=== PATIENT | male | born 1995 | race Two or more races ===

== ENCOUNTER 2022-03-11 06:12 | Day surgery (SDC) | payer OTHER ==
[~2022-03-11] VITALS: Ht 167.6 cm; Wt 78.5 kg
[~2022-03-11 06:12] MED LIST: LR 1,000 ML IV SCH; ONDANSETRON 4MG 2ML VIAL IV PRN; fentaNYL 100 MCG/2 ML INJECTION IV PRN; oxyCODONE 5MG TAB PO PRN
[2022-03-11] MEDS ORDERED: ceFAZolin SOD 2 GM in IV 1 EA IV ONE (06:15)
[2022-03-11] MEDS ORDERED: BACITRACIN OINTMENT 30GM TUBE As Ordered ONE (07:11)
[2022-03-11] MEDS ORDERED: BUPIVACAINE HCL 0.25% 30ML VIAL As Ordered ONE (07:11)
[2022-03-11] MEDS ORDERED: LIDOCAINE 1% SDV 30ML VIAL As Ordered ONE (07:11)
[2022-03-11] MEDS ORDERED: ONDANSETRON 4MG 2ML VIAL IV PRN ×2 (07:45→08:55)
[2022-03-11] MEDS ORDERED: LR 1,000 ML IV SCH ×2 (07:45→08:55)
[2022-03-11] MEDS ORDERED: fentaNYL 100 MCG/2 ML INJECTION IV PRN ×2 (07:45→08:55)
[2022-03-11] MEDS ORDERED: oxyCODONE 5MG TAB PO PRN (07:45)
[2022-03-11] MEDS ORDERED: propofoL 200 MG/20 ML VIAL As Ordered ONE (08:01)
[2022-03-11] MEDS ORDERED: MIDAZOLAM INJ 2MG/2ML VIAL As Ordered ONE (08:01)
[2022-03-11] MEDS ORDERED: fentaNYL 250 MCG/5 ML INJECTION As Ordered ONE (08:01)
[2022-03-11] MEDS ORDERED: ACETAMINOPHEN 1000MG 100ML IV BAG As Ordered ONE (08:01)
[2022-03-11] MEDS ORDERED: LIDOCAINE 2% 100MG/5ML SDV (FOR ANES.) As Ordered ONE (08:01)
[2022-03-11] MEDS ORDERED: ONDANSETRON 4MG 2ML VIAL As Ordered ONE (08:01)
[2022-03-11] MEDS ORDERED: ESMOLOL INJ 100MG/10ML VIAL As Ordered ONE (08:29)
[2022-03-11] MEDS ORDERED: PERCOCET 5MG/325MG TAB PO PRN (09:25)
[2022-03-11] MEDS ORDERED: PERCOCET PO (09:27)
[2022-03-11] MEDS: oxyCODONE 5MG TAB PO PRN ×2 (09:51→10:49)
[2022-03-11 11:29] VITALS: BP 130/84
== END 2022-03-11 11:33 | disposition home or self-care (01) ==
LOC: M SDC 06:12
PROVIDERS: ATTEND Urology
DX: Z30.2 Encounter for sterilization (principal); N47.1 Phimosis
CPT/HCPCS: 54150; 55250; 88302; 88304; J0131; J0690; J1100; J2250; J2405; J3010; S0020

== ENCOUNTER → 2022-05-06 | Outpatient (REF) | payer OTHER ==
[~2022-05-06] MED LIST changes: -LR 1,000 ML IV SCH; -ONDANSETRON 4MG 2ML VIAL IV PRN; +PERCOCET PO; -fentaNYL 100 MCG/2 ML INJECTION IV PRN; -oxyCODONE 5MG TAB PO PRN
[2022-05-06 14:25] LABS: SEMEN APPEARANCE OPAQUE (OPAQUE); SEMEN VISCOSITY LIQUID (LIQUID); SEMEN VOLUME 5.2 ml (2.0-5.0); SEMEN pH 8.5 (7.0-8.0); WBC CONCENTRATION <=1 M/ml (<=1 M/ml)
== END ==
LOC: M SMT 14:20
PROVIDERS: ATTEND Urology
DX: Z30.8 Encounter for other contraceptive management (principal)

== ENCOUNTER → 2022-06-06 | Outpatient (REF) | payer OTHER ==
[2022-06-06 12:46] LABS: SEMEN APPEARANCE OPAQUE (OPAQUE); SEMEN VISCOSITY LIQUID (LIQUID); SEMEN VOLUME 4.1 ml (2.0-5.0); SEMEN pH 8.5 (7.0-8.0); WBC CONCENTRATION <=1 M/ml (<=1 M/ml)
== END ==
LOC: M SMT 10:57
PROVIDERS: ATTEND Urology
DX: Z30.8 Encounter for other contraceptive management (principal)